=== PATIENT | male | born 1985 | race American Indian/Alaskan Native ===

== ENCOUNTER 2017-04-01 19:13 | Emergency (ER) | payer SELFPAY ==
[2017-04-01 19:28] VITALS: BP 157/95
[2017-04-01] MEDS ORDERED: Sodium Chloride 0.9% 1,000 ML IV ONE ×2 (19:31→20:18)
[2017-04-01] MEDS ORDERED: Ondansetron 4 MG/2 ML SDV IV ONE (19:32)
--- NOTE | 2017-04-01 20:41 | EDM.PDOC ---
ED HPI GENERAL MEDICAL PROBLEM - General Chief Complaint: Gastrointestinal Problem Stated Complaint: DIZZY, Time Seen by Provider: 04/01/17 20:15 Source of Information: Reports: Patient History Limitations: Reports: No Limitations - History of Present Illness INITIAL COMMENTS - FREE TEXT/NARRATIVE: C/o feeling nauseated an dizzy after being outside today. Notes nausea around noon , no vomiting. Notes did not drink very much liquid today. Denies medical hx. Onset: Today Duration: Hour(s): Associated Symptoms: Reports: Nausea/Vomiting, Other (dizzy) Headache Pain Score (Numeric/FACES): 6 - Related Data Allergies Allergy/AdvReac Type Severity Reaction Status Date / Time No Known Allergies Allergy Verified 04/01/17 19:28 Home Meds: Home Meds . [No Known Home Meds] 12/16/14 [History] Past Medical History - Past Health History Medical/Surgical History: Denies Medical/Surgical History Musculoskeletal History: Reports: Other (See Below) Other Musculoskeletal History: Fx. arm x2 Endocrine/Metabolic History: Reports: Obesity/BMI 30+ - Infectious Disease History Infectious Disease History: Reports: Chicken Pox Social & Family History - Family History Family Medical History: Noncontributory - Tobacco Use Smoking Status *Q: Current Every Day Smoker Years of Tobacco use: 15 Packs/Tins Daily: 0.2 Second Hand Smoke Exposure: No - Caffeine Use Caffeine Use: Reports: Soda - Alcohol Use Days Per Week of Alcohol Use: 3 Number of Drinks Per Day: 12 Total Drinks Per Week: 36 - Recreational Drug Use Recreational Drug Use: No - Sexual History Sexual History: Reports: Sexually Active - Living Situation & Occupation Living situation: Reports: with Significant Other Occupation: Employed ED ROS GENERAL - Review of Systems Review Of Systems: See Below Constitutional: Reports: No Symptoms HEENT: Reports: No Symptoms Respiratory: Reports: No Symptoms Cardiovascular: Reports: No Symptoms GI/Abdominal: Reports: Nausea : Reports: No Symptoms Musculoskeletal: Reports: No Symptoms Skin: Reports: No Symptoms Neurological: Reports: Dizziness ED EXAM, GI/ABD - Physical Exam Exam: See Below Exam Limited By: No Limitations General Appearance: Alert, No Apparent Distress Eyes: Bilateral: EOMI Ears: Normal External Exam Nose: Normal Inspection Throat/Mouth: Normal Inspection, Normal Lips, Normal Teeth Head: Atraumatic Neck: Normal Inspection, Supple Respiratory/Chest: No Respiratory Distress, Lungs Clear Cardiovascular: Normal Peripheral Pulses, Regular Rate, Rhythm GI/Abdominal Exam: Normal Bowel Sounds, Soft, Non-Tender Extremities: Normal Inspection, Normal Range of Motion Neurological: Alert, Oriented, Normal Cognition Psychiatric: Normal Affect, Normal Mood Skin Exam: Warm, Dry, Intact, Normal Color, Tattoo(s) Course - Vital Signs Last Recorded V/S: Last Vital Signs Temp 97.4 F 04/01/17 19:16 Pulse 109 H 04/01/17 19:16 Resp 16 04/01/17 19:16 BP 157/95 H 04/01/17 19:16 Pulse Ox 100 04/01/17 20:38 Orthostatic Blood Pressure [ 148/96 Supine] Orthostatic Blood Pressure [ 143/100 Standing] Orthostatic Blood Pressure [ 153/97 Sitting] - Orders/Labs/Meds Orders: Active Orders 24 hr Category Date Time Status Orthostatic Vital Signs [RC] ASDIRECTED Care 04/01/17 20:38 Active Labs: Laboratory Tests 04/01/17 04/01/17 04/01/17 Range/Units 19:34 19:40 19:40 WBC 13.2 H (5.0-10.0) 10^3/uL RBC 5.43 (4.6-6.2) 10^6/uL Hgb 17.5 (14.0-18.0) g/dL Hct 50.3 (40.0-54.0) % MCV 92.6 (80-100) fL MCH 32.2 (27.0-34.0) pg MCHC 34.8 (33.0-35.0) g/dL Plt Count 317 (150-450) 10^3/uL Neut % (Auto) 62.4 (42.2-75.2) % Lymph % (Auto) 27.5 (20.5-50.1) % [place] % (Auto) 8.9 H (2-8) % Eos % (Auto) 1.0 (1.0-3.0) % Baso % (Auto) 0.2 (0.0-1.0) % Sodium 139 (135-145) mmol/L Potassium 4.0 (3.6-5.0) mmol/L Chloride 104 (101-111) mmol/L Carbon Dioxide 21.0 (21.0-31.0) mmol/L Anion Gap 18.0 BUN 25 H (7-18) mg/dL Creatinine 1.6 H (0.6-1.3) mg/dL Est Cr Clr Drug Dosing 76.29 mL/min Estimated GFR (MDRD) 51 BUN/Creatinine Ratio 15.62 Glucose 96 (74-105) mg/dL Calcium 9.9 (8.4-10.2) mg/dl Total Bilirubin 1.2 H (0.2-1.0) mg/dL AST 36 (10-42) IU/L ALT 46 (10-60) IU/L Alkaline Phosphatase 106 (42-121) IU/L Total Protein 9.5 H (6.7-8.2) g/dl Albumin 5.3 (3.2-5.5) g/dl Globulin 4.2 Albumin/Globulin Ratio 1.26 Urine Color Dark yellow (YELLOW) Urine Appearance Slightly cloudy (CLEAR) Urine pH 5.5 (5.0-9.0) Ur Specific [place] >= 1.030 (1.005-1.030) Urine Protein >=300 H (NEGATIVE) Urine Glucose (UA) Negative (NEGATIVE) Urine Ketones 15 H (NEGATIVE) Urine Occult Blood Trace-lysed H (NEGATIVE) Urine Nitrite Negative (NEGATIVE) Urine Bilirubin Moderate H (NEGATIVE) Urine Urobilinogen 1.0 (0.2-1.0) mg/dL Ur Leukocyte Esterase Negative (NEGATIVE) Urine RBC 5-10 H /HPF Urine WBC 0-5 (0-5/HPF) /HPF Ur Epithelial Cells Rare /HPF Amorphous Sediment Rare (0/HPF) /HPF Urine Bacteria Moderate H (0-FEW/HPF) /HPF Hyaline Casts Rare H /LPF Urine Mucus Many H /LPF Meds: Medications Discontinued Medications Generic Name Dose Route Start Last Admin Trade Name Freq PRN Reason Stop Dose Admin Sodium Chloride 1,000 mls @ 999 mls/hr 04/01/17 19:31 04/01/17 19:44 Normal Saline IV 04/01/17 20:31 999 mls/hr .BOLUS ONE Administration Sodium Chloride 1,000 mls @ 999 mls/hr 04/01/17 20:18 04/01/17 20:21 Normal Saline IV 04/01/17 21:18 999 mls/hr .BOLUS ONE Administration Ondansetron HCl 4 mg 04/01/17 19:32 04/01/17 19:45 Zofran IV 04/01/17 19:33 4 mg ONETIME ONE Administration Departure - Departure Time of Disposition: 20:45 Disposition: Home, Self-Care 01 Condition: Good Clinical Impression: Dehydration, Nausea - Discharge Information Instructions: Dehydration, Adult, [id number] Referrals: PCP,None [Primary Care Provider] - Forms: ED Department Discharge Additional Instructions: increase fluid intake rest follow up with or establish primary care and recheck labs, liver and kidney and recheck blood pressure - My Orders Last 24 Hours: My Active Orders 04/01/17 20:38 Orthostatic Vital Signs [RC] ASDIRECTED - Assessment/Plan Last 24 Hours: My Active Orders 04/01/17 20:38 Orthostatic Vital Signs [RC] ASDIRECTED
== END 2017-04-01 21:02 | disposition home or self-care (01) ==
LOC: DL.ED 19:13
DX: E86.0 Dehydration (principal); R11.0 Nausea; E66.9 Obesity, unspecified; F17.210 Nicotine dependence, cigarettes, uncomplicated
CPT/HCPCS: 36415; 80053; 81001; 85025; 96361; 96374; 99283; J2405; J7030

== ENCOUNTER 2017-07-02 12:48 | Emergency (ER) | payer SELFPAY ==
[2017-07-02] MEDS ORDERED: Sodium Chloride 0.9% 10 ML Syringe FLUSH PRN (13:00)
[2017-07-02] MEDS ORDERED: Ondansetron 4 MG/2 ML SDV IV ONE (13:05)
[2017-07-02] MEDS ORDERED: Pantoprazole 40 MG Vial IVPUSH ONE (13:05)
--- NOTE | 2017-07-02 13:09 | EDM.PDOC ---
ED HPI GENERAL MEDICAL PROBLEM - General Chief Complaint: Gastrointestinal Problem Stated Complaint: PUKING BLOOD, FAINT Time Seen by Provider: 07/02/17 13:00 Source of Information: Reports: Patient, RN, RN Notes Reviewed History Limitations: Reports: No Limitations - History of Present Illness INITIAL COMMENTS - FREE TEXT/NARRATIVE: Pt presents to the ER with c/o nausea this morning with vomiting of blood beginning at 1130. He states at first the emesis had streaks of blood in it, and then more blood. He denies any recent illnesses. He denies use of alcohol for approximately 3-4 months. Onset: Today, Sudden Middle Epigastric Pain Score (Numeric/FACES): 4 - Related Data Allergies Allergy/AdvReac Type Severity Reaction Status Date / Time No Known Allergies Allergy Verified 07/02/17 12:55 Home Meds: Home Meds . [No Known Home Meds] 12/16/14 [History] Past Medical History - Past Health History Medical/Surgical History: Denies Medical/Surgical History Musculoskeletal History: Reports: Other (See Below) Other Musculoskeletal History: Fx. arm x2 Endocrine/Metabolic History: Reports: Obesity/BMI 30+ - Infectious Disease History Infectious Disease History: Reports: Chicken Pox Social & Family History - Family History Family Medical History: Noncontributory - Tobacco Use Smoking Status *Q: Current Every Day Smoker Years of Tobacco use: 15 Packs/Tins Daily: 0.5 Second Hand Smoke Exposure: No - Caffeine Use Caffeine Use: Reports: Coffee, Soda, Tea - Alcohol Use Days Per Week of Alcohol Use: 3 Number of Drinks Per Day: 12 Total Drinks Per Week: 36 - Recreational Drug Use Recreational Drug Use: No - Sexual History Sexual History: Reports: Sexually Active - Living Situation & Occupation Living situation: Reports: with Significant Other Occupation: Employed ED ROS GENERAL - Review of Systems Review Of Systems: ROS reveals no pertinent complaints other than HPI. ED EXAM, GI/ABD - Physical Exam Exam: See Below Exam Limited By: No Limitations General Appearance: Alert, WD/WN, Mild Distress Ears: Normal External Exam, Hearing Grossly Normal Nose: Normal Inspection, Normal Mucosa, No Blood Throat/Mouth: Normal Inspection, Normal Lips, Normal Teeth, Normal Gums, Normal Oropharynx, Normal Voice, No Airway Compromise Head: Atraumatic, Normocephalic Neck: Normal Inspection, Supple, Non-Tender, Full Range of Motion Respiratory/Chest: No Respiratory Distress, Lungs Clear, Normal Breath Sounds, No Accessory Muscle Use, Chest Non-Tender Cardiovascular: Normal Peripheral Pulses, Regular Rate, Rhythm, No Edema, No Gallop, No JVD, No Murmur, No Rub GI/Abdominal Exam: Normal Bowel Sounds, Soft, No Organomegaly, No Distention, No Abnormal Bruit, No Mass, Tender (Male) Exam: Deferred Rectal (Males) Exam: Deferred Back Exam: Normal Inspection, Full Range of Motion Extremities: Normal Inspection, Normal Range of Motion, Non-Tender, No Pedal Edema, Normal Capillary Refill Neurological: Alert, Oriented, Normal Cognition, Normal Gait, No Motor/Sensory Deficits Psychiatric: Anxious Skin Exam: Warm, Dry, Intact, Normal Color, No Rash Lymphatic: No Adenopathy Course - Vital Signs Last Recorded V/S: Last Vital Signs Temp 97.6 F 07/02/17 12:57 Pulse 84 07/02/17 14:15 Resp 16 07/02/17 14:15 BP 156/94 H 07/02/17 14:15 Pulse Ox 100 07/02/17 14:15 - Orders/Labs/Meds Orders: Active Orders 24 hr Category Date Time Status Peripheral IV Care [RC] . DIRECTED Care 07/02/17 13:01 Active Sodium Chloride 0.9% [Normal Saline] 1,000 ml Med 07/02/17 14:41 Active IV .BOLUS Sodium Chloride 0.9% [Saline Flush] Med 07/02/17 13:00 Active 10 ml FLUSH ASDIRECTED PRN Peripheral IV Insertion Adult [OM.PC] Stat Oth 07/02/17 13:00 Ordered Medication Orders Sodium Chloride (Normal Saline) 1,000 mls @ 999 mls/hr IV .BOLUS ONE Stop: 07/02/17 15:41 Last Admin: 07/02/17 14:46 Dose: 999 mls/hr Sodium Chloride (Saline Flush) 10 ml FLUSH ASDIRECTED PRN PRN Reason: Keep Vein Open Last Admin: 07/02/17 13:05 Dose: 10 ml Labs: Laboratory Tests 07/02/17 07/02/17 07/02/17 Range/Units 13:00 13:00 13:06 WBC 12.0 H (5.0-10.0) 10^3/uL RBC 5.39 (4.6-6.2) 10^6/uL Hgb 17.1 (14.0-18.0) g/dL Hct 50.1 (40.0-54.0) % MCV 92.9 (80-100) fL MCH 31.7 (27.0-34.0) pg MCHC 34.1 (33.0-35.0) g/dL Plt Count 321 (150-450) 10^3/uL Neut % (Auto) 68.4 (42.2-75.2) % Lymph % (Auto) 24.1 (20.5-50.1) % [place] % (Auto) 6.7 (2-8) % Eos % (Auto) 0.6 L (1.0-3.0) % Baso % (Auto) 0.2 (0.0-1.0) % Sodium 141 (135-145) mmol/L Potassium 4.2 (3.6-5.0) mmol/L Chloride 103 (101-111) mmol/L Carbon Dioxide 24.0 (21.0-31.0) mmol/L Anion Gap 18.2 BUN 22 H (7-18) mg/dL Creatinine 1.3 (0.6-1.3) mg/dL Est Cr Clr Drug Dosing TNP Estimated GFR (MDRD) > 60 BUN/Creatinine Ratio 16.92 Glucose 91 (74-105) mg/dL Calcium 9.9 (8.4-10.2) mg/dl Total Bilirubin 0.9 (0.2-1.0) mg/dL AST 28 (10-42) IU/L ALT 31 (10-60) IU/L Alkaline Phosphatase 104 (42-121) IU/L Total Protein 8.6 H (6.7-8.2) g/dl Albumin 5.0 (3.2-5.5) g/dl Globulin 3.6 Albumin/Globulin Ratio 1.39 Amylase (28-100) U/L Lipase (22-51) U/L Urine Color Yellow (YELLOW) Urine Appearance Clear (CLEAR) Urine pH 5.5 (5.0-9.0) Ur Specific [place] >= 1.030 (1.005-1.030) Urine Protein 100 H (NEGATIVE) Urine Glucose (UA) Negative (NEGATIVE) Urine Ketones Trace H (NEGATIVE) Urine Occult Blood Negative (NEGATIVE) Urine Nitrite Negative (NEGATIVE) Urine Bilirubin Small H (NEGATIVE) Urine Urobilinogen 0.2 (0.2-1.0) mg/dL Ur Leukocyte Esterase Negative (NEGATIVE) Urine RBC 0-5 /HPF Urine WBC 0-5 (0-5/HPF) /HPF Ur Epithelial Cells Few /HPF Urine Bacteria Moderate H (0-FEW/HPF) /HPF Urine Mucus Moderate H /LPF Urine Opiates Screen (NEGATIVE) Ur Oxycodone Screen (NEGATIVE) Urine Methadone Screen (NEGATIVE) Ur Barbiturates Screen (NEGATIVE) U Tricyclic Antidepress (NEGATIVE) Ur Phencyclidine Scrn (NEGATIVE) Ur Amphetamine Screen (NEGATIVE) U Methamphetamines Scrn (NEGATIVE) Urine MDMA Screen (NEGATIVE) U Benzodiazepines Scrn (NEGATIVE) Urine Cocaine Screen (NEGATIVE) U Marijuana (THC) Screen (NEGATIVE) Ethyl Alcohol 5 mg/dL 07/02/17 07/02/17 Range/Units 13:06 13:17 WBC (5.0-10.0) 10^3/uL RBC (4.6-6.2) 10^6/uL Hgb (14.0-18.0) g/dL Hct (40.0-54.0) % MCV (80-100) fL MCH (27.0-34.0) pg MCHC (33.0-35.0) g/dL Plt Count (150-450) 10^3/uL Neut % (Auto) (42.2-75.2) % Lymph % (Auto) (20.5-50.1) % [place] % (Auto) (2-8) % Eos % (Auto) (1.0-3.0) % Baso % (Auto) (0.0-1.0) % Sodium (135-145) mmol/L Potassium (3.6-5.0) mmol/L Chloride (101-111) mmol/L Carbon Dioxide (21.0-31.0) mmol/L Anion Gap BUN (7-18) mg/dL Creatinine (0.6-1.3) mg/dL Est Cr Clr Drug Dosing Estimated GFR (MDRD) BUN/Creatinine Ratio Glucose (74-105) mg/dL Calcium (8.4-10.2) mg/dl Total Bilirubin (0.2-1.0) mg/dL AST (10-42) IU/L ALT (10-60) IU/L Alkaline Phosphatase (42-121) IU/L Total Protein (6.7-8.2) g/dl Albumin (3.2-5.5) g/dl Globulin Albumin/Globulin Ratio Amylase 55 (28-100) U/L Lipase 28 (22-51) U/L Urine Color (YELLOW) Urine Appearance (CLEAR) Urine pH (5.0-9.0) Ur Specific [place] (1.005-1.030) Urine Protein (NEGATIVE) Urine Glucose (UA) (NEGATIVE) Urine Ketones (NEGATIVE) Urine Occult Blood (NEGATIVE) Urine Nitrite (NEGATIVE) Urine Bilirubin (NEGATIVE) Urine Urobilinogen (0.2-1.0) mg/dL Ur Leukocyte Esterase (NEGATIVE) Urine RBC /HPF Urine WBC (0-5/HPF) /HPF Ur Epithelial Cells /HPF Urine Bacteria (0-FEW/HPF) /HPF Urine Mucus /LPF Urine Opiates Screen Negative (NEGATIVE) Ur Oxycodone Screen Negative (NEGATIVE) Urine Methadone Screen Negative (NEGATIVE) Ur Barbiturates Screen Negative (NEGATIVE) U Tricyclic Antidepress Negative (NEGATIVE) Ur Phencyclidine Scrn Negative (NEGATIVE) Ur Amphetamine Screen Negative (NEGATIVE) U Methamphetamines Scrn Negative (NEGATIVE) Urine MDMA Screen Negative (NEGATIVE) U Benzodiazepines Scrn Negative (NEGATIVE) Urine Cocaine Screen Negative (NEGATIVE) U Marijuana (THC) Screen Positive H (NEGATIVE) Ethyl Alcohol mg/dL Gastric Occult Blood: NEGATIVE Meds: Medications Generic Name Dose Route Start Last Admin Trade Name Freq PRN Reason Stop Dose Admin Sodium Chloride 1,000 mls @ 999 mls/hr 07/02/17 14:41 07/02/17 14:46 Normal Saline IV 07/02/17 15:41 999 mls/hr .BOLUS ONE Administration Sodium Chloride 10 ml 07/02/17 13:00 07/02/17 13:05 Saline Flush FLUSH 10 ml ASDIRECTED PRN Administration Keep Vein Open Discontinued Medications Generic Name Dose Route Start Last Admin Trade Name Freq PRN Reason Stop Dose Admin Metoclopramide HCl 10 mg 07/02/17 14:40 07/02/17 14:46 Reglan IVPUSH 07/02/17 14:41 10 mg ONETIME ONE Administration Ondansetron HCl 4 mg 07/02/17 13:05 07/02/17 13:13 Zofran IV 07/02/17 13:06 4 mg ONETIME ONE Administration Pantoprazole Sodium 40 mg 07/02/17 13:05 07/02/17 13:13 Protonix Iv IVPUSH 07/02/17 13:06 40 mg ONETIME ONE Administration Promethazine HCl 25 mg 07/02/17 14:00 07/02/17 14:13 Phenergan IM 07/02/17 14:01 25 mg ONETIME ONE Administration - Radiology Interpretation Free Text/Narrative:: Abdomen Pelvis w/o contrast: No acute findings See rad report Departure - Departure Time of Disposition: 15:15 Disposition: Home, Self-Care 01 Condition: Fair Clinical Impression: Gastroenteritis, Nausea - Discharge Information Instructions: Viral Gastroenteritis, Adult, [id number], Abdominal Pain, Adult , [id number] Forms: ED Department Discharge Additional Instructions: Follow up with your primary care facility RX: Reglan - My Orders Last 24 Hours: My Active Orders 07/02/17 13:00 Sodium Chloride 0.9% [Saline Flush] 10 ml FLUSH ASDIRECTED PRN Peripheral IV Insertion Adult [OM.PC] Stat 07/02/17 13:01 Peripheral IV Care [RC] . DIRECTED 07/02/17 14:41 Sodium Chloride 0.9% [Normal Saline] 1,000 ml IV .BOLUS - Assessment/Plan Last 24 Hours: My Active Orders 07/02/17 13:00 Sodium Chloride 0.9% [Saline Flush] 10 ml FLUSH ASDIRECTED PRN Peripheral IV Insertion Adult [OM.PC] Stat 07/02/17 13:01 Peripheral IV Care [RC] . DIRECTED 07/02/17 14:41 Sodium Chloride 0.9% [Normal Saline] 1,000 ml IV .BOLUS
[2017-07-02 13:43] LABS: CHLORIDE,CL 103 mmol/L (101-111); SODIUM,NA 141 mmol/L (135-145)
[2017-07-02] MEDS ORDERED: Promethazine 25 MG/ML SDV IM ONE (14:00)
[2017-07-02 14:16] VITALS: BP 156/94
--- NOTE | 2017-07-02 14:34 | CT ---
Clinical history: 32-year-old 275 pound obese male smoker with abdominal pain. WBC 12,000. Scan technique: Volume acquisition of data emergency unenhanced CT scan of the abdomen and pelvis obt ained with patient lying supine on the Siemens multi slice scanner [place], [place]. All data archived in the PACS system for storage, reformatting and study. Interpretation: 1. Mild levorotatory lumbar scoliosis and chronic lower lumbar L5-S1 disc disease. Hypertrophic arthr itic changes of the spine. 2. Normal appendix deep RLQ abdomen/pelvis. 3. Gallbladder, unenhanced liver, stomach (small hiatus hernia), spleen, pancreas, adrenal glands and kidneys unremarkable. No sign of renal cortical mass lesion, nephrolithiasis or obstructive uropathy . 4. *Some diffuse apparent bowel wall thickening ascending right colon not appreciated on previous exa m of October 2015 could represent colitis. Clinical? No colonic mass, signs of mechanical bowel obstruc tion, or pericolonic inflammatory "dirty" fat. 5. No pelvic or abdominal mass lesion and no signs of mesenteric or retroperitoneal lymphadenopathy. 6. Normal caliber unenhanced aortoiliac vessels. No free intraperitoneal air. 7. Lung bases clear. CONCLUSION: No acute intraperitoneal abnormality (subtle observation right colon. See above.) No sign of appendicitis, diverticulitis, cholecystitis, or pyelonephritis.
[2017-07-02] MEDS ORDERED: Metoclopramide 10 MG/2 ML SDV IVPUSH ONE (14:40)
[2017-07-02] MEDS ORDERED: Sodium Chloride 0.9% 1,000 ML IV ONE (14:41)
== END 2017-07-02 15:23 | disposition home or self-care (01) ==
LOC: DL.ED 12:48
DX: K52.9 Noninfective gastroenteritis and colitis, unspecified (principal); F17.210 Nicotine dependence, cigarettes, uncomplicated
CPT/HCPCS: 36415; 74176; 80053; 80305; 81001; 82150; 82271; 83690; 85025; 96361; 96372; 96374; 96375; 99284; C9113; G0480; J2405; J2550; J2765; J7030; J7050

== ENCOUNTER 2017-07-12 03:33 | Emergency (ER) | payer SELFPAY ==
[2017-07-12 03:42] VITALS: BP 157/99
[2017-07-12] MEDS ORDERED: Famotidine 20 MG/2 ML SDV IVPUSH ONE (03:45)
[2017-07-12] MEDS ORDERED: Sodium Chloride 0.9% 1,000 ML IV ONE (03:45)
--- NOTE | 2017-07-12 04:20 | EDM.PDOC ---
ED HPI GENERAL MEDICAL PROBLEM - General Chief Complaint: Abdominal Pain Stated Complaint: BAD STOMACH ACHE Time Seen by Provider: 07/12/17 03:50 Source of Information: Reports: Patient History Limitations: Reports: No Limitations - History of Present Illness INITIAL COMMENTS - FREE TEXT/NARRATIVE: c/o vomiting and diarrhea since 7 pm after eating corn dogs for supper. Admits not feeling well during day. Chills during day. Similar sx one week ago. Onset: Today Abdomen Pain Score (Numeric/FACES): 7 - Related Data Allergies Allergy/AdvReac Type Severity Reaction Status Date / Time No Known Allergies Allergy Verified 07/12/17 03:45 Home Meds: Home Meds . [No Known Home Meds] 12/16/14 [History] Past Medical History - Past Health History Medical/Surgical History: Denies Medical/Surgical History Musculoskeletal History: Reports: Other (See Below) Other Musculoskeletal History: Fx. arm x2 Endocrine/Metabolic History: Reports: Obesity/BMI 30+ - Infectious Disease History Infectious Disease History: Reports: Chicken Pox Social & Family History - Family History Family Medical History: Noncontributory - Tobacco Use Smoking Status *Q: Current Every Day Smoker Years of Tobacco use: 15 Packs/Tins Daily: 1 Second Hand Smoke Exposure: No - Caffeine Use Caffeine Use: Reports: Soda - Alcohol Use Days Per Week of Alcohol Use: 3 Number of Drinks Per Day: 12 Total Drinks Per Week: 36 - Recreational Drug Use Recreational Drug Use: No - Sexual History Sexual History: Reports: Sexually Active - Living Situation & Occupation Living situation: Reports: with Significant Other Occupation: Employed ED ROS GENERAL - Review of Systems Review Of Systems: See Below Constitutional: Reports: Chills HEENT: Reports: No Symptoms Respiratory: Reports: No Symptoms Cardiovascular: Reports: No Symptoms GI/Abdominal: Reports: Decreased Appetite, Nausea, Vomiting : Reports: No Symptoms Musculoskeletal: Reports: No Symptoms Skin: Reports: No Symptoms Neurological: Reports: No Symptoms ED EXAM, GI/ABD - Physical Exam Exam: See Below Exam Limited By: No Limitations General Appearance: Alert, Mild Distress Eyes: Bilateral: EOMI Ears: Normal External Exam Nose: Normal Inspection Throat/Mouth: Normal Inspection Head: Atraumatic, Normocephalic Neck: Normal Inspection Respiratory/Chest: No Respiratory Distress, Lungs Clear Cardiovascular: Normal Peripheral Pulses, Regular Rate, Rhythm GI/Abdominal Exam: Soft, No Distention, Tender, Abnormal Bowel Sounds ( hypoactive), Other (frequent dry heaves). No: Guarding Extremities: Normal Inspection, Normal Range of Motion Neurological: Alert, Oriented, Normal Cognition Psychiatric: Normal Affect Skin Exam: Warm, Dry, Intact, Normal Color Course - Vital Signs Last Recorded V/S: Last Vital Signs Temp 97.6 F 07/12/17 04:35 Pulse 52 L 07/12/17 03:41 Resp 18 07/12/17 03:41 BP 157/99 H 07/12/17 03:41 Pulse Ox 100 07/12/17 03:41 - Orders/Labs/Meds Labs: Laboratory Tests 07/12/17 07/12/17 07/12/17 Range/Units 04:05 04:05 05:13 WBC 17.3 H (5.0-10.0) 10^3/uL RBC 4.98 (4.6-6.2) 10^6/uL Hgb 15.7 (14.0-18.0) g/dL Hct 46.6 (40.0-54.0) % MCV 93.6 (80-100) fL MCH 31.5 (27.0-34.0) pg MCHC 33.7 (33.0-35.0) g/dL Plt Count 298 (150-450) 10^3/uL Neut % (Auto) 86.4 H (42.2-75.2) % Lymph % (Auto) 9.0 L (20.5-50.1) % [place] % (Auto) 4.3 (2-8) % Eos % (Auto) 0.2 L (1.0-3.0) % Baso % (Auto) 0.1 (0.0-1.0) % Sodium 138 (135-145) mmol/L Potassium 4.1 (3.6-5.0) mmol/L Chloride 107 (101-111) mmol/L Carbon Dioxide 25.0 (21.0-31.0) mmol/L Anion Gap 10.1 BUN 16 (7-18) mg/dL Creatinine 1.0 (0.6-1.3) mg/dL Est Cr Clr Drug Dosing 120.96 mL/min Estimated GFR (MDRD) > 60 BUN/Creatinine Ratio 16.00 Glucose 117 H (74-105) mg/dL Calcium 9.1 (8.4-10.2) mg/dl Total Bilirubin 0.6 (0.2-1.0) mg/dL AST 28 (10-42) IU/L ALT 28 (10-60) IU/L Alkaline Phosphatase 91 (42-121) IU/L Total Protein 7.7 (6.7-8.2) g/dl Albumin 4.3 (3.2-5.5) g/dl Globulin 3.4 Albumin/Globulin Ratio 1.26 Amylase 55 (28-100) U/L Lipase 24 (22-51) U/L Urine Color (YELLOW) Urine Appearance (CLEAR) Urine pH (5.0-9.0) Ur Specific [place] (1.005-1.030) Urine Protein (NEGATIVE) Urine Glucose (UA) (NEGATIVE) Urine Ketones (NEGATIVE) Urine Occult Blood (NEGATIVE) Urine Nitrite (NEGATIVE) Urine Bilirubin (NEGATIVE) Urine Urobilinogen (0.2-1.0) mg/dL Ur Leukocyte Esterase (NEGATIVE) Urine RBC /HPF Urine WBC (0-5/HPF) /HPF Ur Epithelial Cells /HPF Urine Bacteria (0-FEW/HPF) /HPF Urine Opiates Screen Negative (NEGATIVE) Ur Oxycodone Screen Negative (NEGATIVE) Urine Methadone Screen Negative (NEGATIVE) Ur Barbiturates Screen Negative (NEGATIVE) U Tricyclic Antidepress Negative (NEGATIVE) Ur Phencyclidine Scrn Negative (NEGATIVE) Ur Amphetamine Screen Negative (NEGATIVE) U Methamphetamines Scrn Negative (NEGATIVE) Urine MDMA Screen Negative (NEGATIVE) U Benzodiazepines Scrn Negative (NEGATIVE) Urine Cocaine Screen Negative (NEGATIVE) U Marijuana (THC) Screen Positive H (NEGATIVE) 07/12/17 Range/Units 05:13 WBC (5.0-10.0) 10^3/uL RBC (4.6-6.2) 10^6/uL Hgb (14.0-18.0) g/dL Hct (40.0-54.0) % MCV (80-100) fL MCH (27.0-34.0) pg MCHC (33.0-35.0) g/dL Plt Count (150-450) 10^3/uL Neut % (Auto) (42.2-75.2) % Lymph % (Auto) (20.5-50.1) % [place] % (Auto) (2-8) % Eos % (Auto) (1.0-3.0) % Baso % (Auto) (0.0-1.0) % Sodium (135-145) mmol/L Potassium (3.6-5.0) mmol/L Chloride (101-111) mmol/L Carbon Dioxide (21.0-31.0) mmol/L Anion Gap BUN (7-18) mg/dL Creatinine (0.6-1.3) mg/dL Est Cr Clr Drug Dosing mL/min Estimated GFR (MDRD) BUN/Creatinine Ratio Glucose (74-105) mg/dL Calcium (8.4-10.2) mg/dl Total Bilirubin (0.2-1.0) mg/dL AST (10-42) IU/L ALT (10-60) IU/L Alkaline Phosphatase (42-121) IU/L Total Protein (6.7-8.2) g/dl Albumin (3.2-5.5) g/dl Globulin Albumin/Globulin Ratio Amylase (28-100) U/L Lipase (22-51) U/L Urine Color Yellow (YELLOW) Urine Appearance Clear (CLEAR) Urine pH 5.5 (5.0-9.0) Ur Specific [place] >= 1.030 (1.005-1.030) Urine Protein 30 H (NEGATIVE) Urine Glucose (UA) Negative (NEGATIVE) Urine Ketones Negative (NEGATIVE) Urine Occult Blood Negative (NEGATIVE) Urine Nitrite Negative (NEGATIVE) Urine Bilirubin Negative (NEGATIVE) Urine Urobilinogen 0.2 (0.2-1.0) mg/dL Ur Leukocyte Esterase Negative (NEGATIVE) Urine RBC 0-5 /HPF Urine WBC 0-5 (0-5/HPF) /HPF Ur Epithelial Cells Rare /HPF Urine Bacteria Few (0-FEW/HPF) /HPF Urine Opiates Screen (NEGATIVE) Ur Oxycodone Screen (NEGATIVE) Urine Methadone Screen (NEGATIVE) Ur Barbiturates Screen (NEGATIVE) U Tricyclic Antidepress (NEGATIVE) Ur Phencyclidine Scrn (NEGATIVE) Ur Amphetamine Screen (NEGATIVE) U Methamphetamines Scrn (NEGATIVE) Urine MDMA Screen (NEGATIVE) U Benzodiazepines Scrn (NEGATIVE) Urine Cocaine Screen (NEGATIVE) U Marijuana (THC) Screen (NEGATIVE) Meds: Medications Discontinued Medications Generic Name Dose Route Start Last Admin Trade Name Freq PRN Reason Stop Dose Admin Famotidine 20 mg 12/08/17 03:45 07/12/17 04:06 Pepcid IVPUSH 07/12/17 03:46 20 mg ONETIME ONE Administration Sodium Chloride 1,000 mls @ 999 mls/hr 07/12/17 03:45 07/12/17 04:05 Normal Saline IV 07/12/17 04:45 999 mls/hr .BOLUS ONE Administration Metoclopramide HCl 10 mg 07/12/17 05:00 07/12/17 05:05 Reglan IVPUSH 07/12/17 05:01 10 mg ONETIME ONE Administration Ondansetron HCl 4 mg 07/12/17 04:41 07/12/17 04:48 Zofran IV 07/12/17 04:42 4 mg ONETIME ONE Administration - Re-Assessments/Exams Free Text/Narrative Re-Assessment/Exam: CT abdomen done less than one week ago and unremarkable, Patient relating similar symptoms. Retching partially resolved following Zofran. Resting, Occasional dry heave. mild generalized non specific abdominal pain with deep palpation. . Vomiting Resolved with Reglan. Sleeping soundly. Departure - Departure Time of Disposition: 06:26 Disposition: Home, Self-Care 01 Condition: Good Clinical Impression: Nausea Vomiting Qualifiers: Vomiting type: unspecified Vomiting Intractability: unspecified Nausea presence : with nausea Qualified Code(s): R11.2 - Nausea with vomiting, unspecified - Discharge Information Instructions: Nausea and Vomiting, Adult, [id number] Referrals: PCP,None [Primary Care Provider] - Forms: ED Department Discharge Additional Instructions: zofran 4mg ODT every 6 hours prn vomiting gradual advance diet no fat or spicy foods follow up with PCP on Saturday
[2017-07-12 04:31] LABS: CHLORIDE,CL 107 mmol/L (101-111); SODIUM,NA 138 mmol/L (135-145)
[2017-07-12] MEDS ORDERED: Ondansetron 4 MG/2 ML SDV IV ONE (04:41)
[2017-07-12] MEDS ORDERED: Metoclopramide 10 MG/2 ML SDV IVPUSH ONE (05:00)
== END 2017-07-12 06:40 | disposition home or self-care (01) ==
LOC: DL.ED 03:33
DX: R11.2 Nausea with vomiting, unspecified (principal); F17.210 Nicotine dependence, cigarettes, uncomplicated
CPT/HCPCS: 36415; 74020; 80053; 80305; 81001; 82150; 83690; 85025; 96361; 96374; 96375; 99284; J2405; J2765; J7030; S0028

== ENCOUNTER 2017-12-05 23:03 | Emergency (ER) | payer SELFPAY ==
[2017-12-05] MEDS ORDERED: cefTRIAXone 1 GM, Lidocaine 1% 2.1 ML IM ONE ×2 (23:31)
--- NOTE | 2017-12-05 23:39 | EDM.PDOC ---
ED HPI GENERAL MEDICAL PROBLEM - General Chief Complaint: Eye Problems Stated Complaint: EYE, FEVER [id number] Time Seen by Provider: 12/05/17 23:05 Source of Information: Reports: Patient History Limitations: Reports: No Limitations - History of Present Illness INITIAL COMMENTS - FREE TEXT/NARRATIVE: ED with c/o sore throat, chills and left eye red. Was seen at [facility] on 12/03 diagnosed with strep throat and ear infection. Given eye drops but eye not getting better. Has been taking tylenol for fever. Was some better until going to work today then seemed to get worse. Left Eye Pain Score (Numeric/FACES): 10 - Related Data Allergies Allergy/AdvReac Type Severity Reaction Status Date / Time No Known Allergies Allergy Verified 07/12/17 03:45 Home Meds: Home Meds . [No Known Home Meds] 12/16/14 [History] Past Medical History - Past Health History Medical/Surgical History: Denies Medical/Surgical History Musculoskeletal History: Reports: Other (See Below) Other Musculoskeletal History: Fx. arm x2 Endocrine/Metabolic History: Reports: Obesity/BMI 30+ - Infectious Disease History Infectious Disease History: Reports: Chicken Pox Social & Family History - Family History Family Medical History: Noncontributory - Tobacco Use Smoking Status *Q: Current Every Day Smoker Years of Tobacco use: 17 Packs/Tins Daily: 0.5 Second Hand Smoke Exposure: No - Caffeine Use Caffeine Use: Reports: Soda - Alcohol Use Days Per Week of Alcohol Use: 3 Number of Drinks Per Day: 12 Total Drinks Per Week: 36 - Recreational Drug Use Recreational Drug Use: No - Sexual History Sexual History: Reports: Sexually Active - Living Situation & Occupation Living situation: Reports: with Significant Other Occupation: Employed ED ROS GENERAL - Review of Systems Review Of Systems: See Below Constitutional: Reports: Fever, Malaise HEENT: Reports: Ear Pain (bilateral), Eye Discharge (left), Throat Pain Respiratory: Reports: No Symptoms Cardiovascular: Reports: No Symptoms GI/Abdominal: Reports: No Symptoms : Reports: No Symptoms Musculoskeletal: Reports: No Symptoms Skin: Reports: No Symptoms Neurological: Reports: No Symptoms ED EXAM GENERAL W FULL EYE - Physical Exam Exam: See Below Exam Limited By: No Limitations General Appearance: Alert, Mild Distress Eye Exam: Left Eye: Conjunctival Injection (yellow milky discharge), Bilateral Eye: EOMI Ears: No: Normal TMs (red bilaterally) Nose: Normal Inspection Throat/Mouth: Other (tonsilar hypertrophy, inflamation no exudate) Neck: Full Range of Motion, Lymphadenopathy (L), Lymphadenopathy (R) Respiratory/Chest: No Respiratory Distress, Lungs Clear, Normal Breath Sounds Cardiovascular: Normal Peripheral Pulses, Regular Rate, Rhythm GI/Abdominal: Normal Bowel Sounds Extremities: Normal Inspection, Normal Range of Motion Neurological: Alert, Oriented, Normal Cognition Psychiatric: Normal Affect, Normal Mood Skin Exam: Warm, Dry, Intact, Normal Color Course - Vital Signs Last Recorded V/S: Last Vital Signs Temp 101.6 F H 12/06/17 00:10 Pulse 97 12/06/17 00:10 Resp BP 123/68 12/06/17 00:10 Pulse Ox 96 12/06/17 00:10 - Orders/Labs/Meds Meds: Medications Discontinued Medications Generic Name Dose Route Start Last Admin Trade Name Christoq PRN Reason Stop Dose Admin Ceftriaxone Sodium 1 gm/ 0 gm 12/05/17 23:31 12/05/17 23:52 Lidocaine HCl 2.1 ml IM 12/05/17 23:32 1 inj ONETIME ONE Administration Departure - Departure Time of Disposition: 23:49 Disposition: Home, Self-Care 01 Condition: Good Clinical Impression: Strep sore throat Conjunctivitis Qualifiers: Conjunctivitis type: acute Acute conjunctivitis type: unspecified Laterality: left Qualified Code(s): H10.32 - Unspecified acute conjunctivitis, left eye Otitis Qualifiers: Laterality: bilateral Qualified Code(s): H66.93 - Otitis media, unspecified, bilateral - Discharge Information Instructions: Bacterial Conjunctivitis, [id number] Forms: ED Department Discharge Additional Instructions: Stop polymyxin eye drop gentamycin ey drops 2 to left eye 4 times daily for 5 days continue amoxicillin increase fluid intake salt water gargles alternate tylenol and ibuprofen for fever/discomfort wash away eye matter frequently with soft cloth from inner to outer follow up Saturday if not improving
[2017-12-06 00:18] VITALS: BP 123/68
== END 2017-12-06 00:14 | disposition home or self-care (01) ==
LOC: DL.ED 23:03
DX: J02.0 Streptococcal pharyngitis (principal); H10.32 Unspecified acute conjunctivitis, left eye; H66.93 Otitis media, unspecified, bilateral; F17.210 Nicotine dependence, cigarettes, uncomplicated
CPT/HCPCS: 96372; 99282; J0696

== ENCOUNTER 2019-10-13 09:50 | Emergency (ER) | payer MEDICAID ==
[2019-10-13 10:39] VITALS: BP 162/99; PULSE 83
--- NOTE | 2019-10-13 10:47 | EDM.PDOC ---
"ED HPI GENERAL MEDICAL PROBLEM - General Chief Complaint: Eye Problems Stated Complaint: PAIN IN LEFT SIDE OF FACE Time Seen by Provider: 10/13/19 10:43 Source of Information: Reports: Patient, Old Records, RN, RN Notes Reviewed History Limitations: Reports: No Limitations - History of Present Illness INITIAL COMMENTS - FREE TEXT/NARRATIVE: Pt presents to ER from home by POV with c/o left eye and face infection. Pt states that two days ago he had a stye to his left lower eye lid that popped and drained yesterday on it's own. Today he has noticed swelling and drainage, unsure of color, and the left side of his face is swollen down to the left ear/ jaw area. Denies change in vision. Vision acuity 20/30 bilaterally. He does not wear glasses. Has been hot packing area at home. Onset: Gradual Onset Date: 10/11/19 Duration: Constant, Getting Worse Location: Reports: Face (Left eye/Left face) Quality: Reports: Ache Severity: Moderate Improves with: Reports: None Worsens with: Reports: None Associated Symptoms: Reports: No Other Symptoms - Related Data Allergies Allergy/AdvReac Type Severity Reaction Status Date / Time No Known Allergies Allergy Verified 10/13/19 10:29 Home Meds: Home Meds . [No Known Home Meds] 12/16/14 [History] Past Medical History - Past Health History Medical/Surgical History: Denies Medical/Surgical History Musculoskeletal History: Reports: Other (See Below) Other Musculoskeletal History: Fx. arm x2 Endocrine/Metabolic History: Reports: Obesity/BMI 30+ - Infectious Disease History Infectious Disease History: Reports: Chicken Pox Social & Family History - Family History Family Medical History: Noncontributory - Tobacco Use Smoking Status *Q: Current Every Day Smoker Years of Tobacco use: 18 Packs/Tins Daily: 0.5 - Caffeine Use Caffeine Use: Reports: Soda - Sexual History Sexual History: Reports: Sexually Active - Living Situation & Occupation Living situation: Reports: with Significant Other Occupation: Employed ED ROS GENERAL - Review of Systems Review Of Systems: Comprehensive ROS is negative, except as noted in HPI. ED EXAM GENERAL W FULL EYE - Physical Exam Exam: See Below Exam Limited By: No Limitations General Appearance: Alert, No Apparent Distress, Obese Eye Exam: Right Eye: Normal Inspection, Left Eye: Conjunctival Injection (With purulent drainage.), Periorbital Changes (Left conjunctival, periorbital swelling, erythema, and tenderness.), Bilateral Eye: EOMI, PERRL Visual Acuity (R) 20/: 30 Visual Acuity (L) 20/: 30 With Correction: No Eyelids: Right: Normal Appearance, Left: Edema, Erythema Conjunctiva & Sclera: Right: Normal Appearance, Left: Conjunctival Edema, Discharge, Injected Cornea Exam: Bilateral: Normal Appearance Extraocular Movements: Bilateral: Intact Pupils: Normal Accommodation Pupillary Size: Bilateral: 3 mm Pupillary Reaction: Bilateral: Brisk Anterior Chamber: Bilateral: Normal Appearance Ears: Normal External Exam, Hearing Grossly Normal, Other (Left pre-auriclular lymphadenopathy) Nose: Normal Inspection, Normal Mucosa, No Blood Throat/Mouth: Normal Inspection, Normal Lips, Normal Voice, No Airway Compromise Head: Atraumatic, Normocephalic Neck: Normal Inspection, Supple, Non-Tender, Full Range of Motion. No: Lymphadenopathy (L), Lymphadenopathy (R) Respiratory/Chest: No Respiratory Distress, Lungs Clear Cardiovascular: Regular Rate, Rhythm Neurological: Alert, Oriented, CN II-XII Intact, Normal Cognition, Normal Gait, No Motor/Sensory Deficits Psychiatric: Normal Affect, Normal Mood Course - Vital Signs Last Recorded V/S: Last Vital Signs Temp 98.9 F 10/13/19 10:29 Pulse 83 10/13/19 10:29 Resp 18 10/13/19 10:29 BP 162/99 H 10/13/19 10:29 Pulse Ox 99 10/13/19 10:29 - Orders/Labs/Meds Orders: Active Orders 24 hr Category Date Time Status Peripheral IV Care [RC] . DIRECTED Care 10/13/19 10:52 Active Max Facial Sinus w Cont [CT] Stat Exams 10/13/19 10:59 Taken CULTURE EYE [RM] Stat Lab 10/13/19 11:39 Received Sodium Chloride 0.9% [Saline Flush] Med 10/13/19 10:51 Active 10 ml FLUSH ASDIRECTED PRN Vancomycin 2 gm Med 10/13/19 10:53 Active Sodium Chloride 0.9% [Normal Saline] 500 ml IV ONETIME Peripheral IV Insertion Adult [OM.PC] Stat Oth 10/13/19 10:51 Ordered Medication Orders Vancomycin HCl 2 gm/ Sodium (Chloride) 500 mls @ 250 mls/hr IV ONETIME ONE Stop: 10/13/19 12:52 Last Admin: 10/13/19 11:35 Dose: 250 mls/hr Sodium Chloride (Saline Flush) 10 ml FLUSH ASDIRECTED PRN PRN Reason: Keep Vein Open Last Admin: 10/13/19 11:00 Dose: 10 ml Labs: Laboratory Tests 10/13/19 10/13/19 10/13/19 Range/Units 10:56 10:56 10:56 WBC 9.0 (5.0-10.0) 10^3/uL RBC 5.08 (4.6-6.2) 10^6/uL Hgb 16.4 (14.0-18.0) g/dL Hct 47.0 (40.0-54.0) % MCV 92.5 (80-100) fL MCH 32.3 (27.0-34.0) pg MCHC 34.9 (33.0-35.0) g/dL Plt Count 252 (150-450) 10^3/uL Neut % (Auto) 59.7 (42.2-75.2) % Lymph % (Auto) 31.2 (20.5-50.1) % [place] % (Auto) 7.7 (2-8) % Eos % (Auto) 1.2 (1.0-3.0) % Baso % (Auto) 0.2 (0.0-1.0) % Add Manual Diff Yes Neutrophils % (Manual) 66 (42-75) % Band Neutrophils % 1 % Lymphocytes % (Manual) 27 (20-50) % Monocytes % (Manual) 4 (2-8) % Eosinophils % (Manual) 2 (1-3) % Sodium 139 (136-145) mmol/L Potassium 4.0 (3.5-5.1) mmol/L Chloride 101 (101-111) mmol/L Carbon Dioxide 29 (21-32) mmol/L Anion Gap 13.0 (7-13) mEq/L BUN 13 (7-18) mg/dL Creatinine 1.07 (0.70-1.30) mg/dL Est Cr Clr Drug Dosing 110.97 mL/min Estimated GFR (MDRD) > 60 Glucose 90 (74-99) mg/dL Calcium 8.0 L (8.5-10.1) mg/dL C-Reactive Protein 0.5 (0.0-0.9) mg/dL Left eye culture: pending Meds: Medications Generic Name Dose Route Start Last Admin Trade Name Freq PRN Reason Stop Dose Admin Vancomycin HCl 2 gm/ Sodium 500 mls @ 250 mls/hr 10/13/19 10:53 10/13/19 11: 35 Chloride IV 10/13/19 12:52 250 mls/hr ONETIME ONE Administration Sodium Chloride 10 ml 10/13/19 10:51 10/13/19 11:00 Saline Flush FLUSH 10 ml ASDIRECTED PRN Administration Keep Vein Open Discontinued Medications Generic Name Dose Route Start Last Admin Trade Name Freq PRN Reason Stop Dose Admin Diphenhydramine HCl 25 mg 10/13/19 10:54 10/13/19 11:31 Benadryl IVPUSH 10/13/19 10:55 25 mg ONETIME ONE Administration Gentamicin Sulfate 1 ml 10/13/19 10:53 10/13/19 11:35 Garamycin 0.3% Ophth Soln EYELF 10/13/19 10:54 1 ml ONETIME ONE Administration Iopamidol 100 ml 10/13/19 10:59 10/13/19 11:18 Isovue-300 (61%) IVPUSH 10/13/19 11:00 100 ml ONETIME ONE Administration - Radiology Interpretation Free Text/Narrative:: [facility] Final Radiology Report Call: [phone] assistance Online chat: [email or web address] Name: LUCIANA REYNA Age: 34Years M Date: 10/13/2019 SSN: -- : [id number] Study: CT MAXILLOFACIAL/SINUSES W Requesting Physician: [facility]CO SAM Images: 255 Addl Studies: Provided Clinical History: Contrast: With Contrast Medium: Isovue 300 Contrast Amount: 100 mL Contrast Method: LAC Page 1 of 2 PROCEDURE INFORMATION: Exam: CT Maxillofacial With Contrast Exam date and time: 10/13/2019 11:10 AM Age: 34 years old Clinical indication: Other: Left periorbital swelling, cellulitis purulent TECHNIQUE: Imaging protocol: Computed tomography images of the face with intravenous contrast. Radiation optimization: All CT scans at this facility use at least one of these dose optimization techniques: automated exposure control; mA and/or kV adjustment per patient size (includes targeted exams where dose is matched to clinical indication); or iterative reconstruction. Contrast material: ISOVUE 300; Contrast volume: 100 ml; Contrast route: LAC; COMPARISON: No relevant prior studies available. FINDINGS: Orbits: No intraorbital emphysema, inflammation, or fluid collection. The globes are normal. Mastoid air cells: The mastoid air cells are aerated. Sinuses: There is multifocal mild mucoperiosteal thickening. No fluid in the paranasal sinuses. Bones/joints: No acute fracture is felt to be present, but the patient may have had a prior left nasal bone fracture. Lymph nodes: There are enlarged left cervical and intraparotid lymph nodes, likely reactive in nature. Soft tissues: There is left preseptal periorbital superficial soft tissue swelling, extending inferiorly anterior to the left zygoma and overlying the left masseter muscle, compatible with the history of cellulitis. IMPRESSION: Superficial soft tissue swelling compatible with cellulitis. Reactive lymphadenopathy. JADEIsaacLUCIANA | Final Radiology Report CONFIDENTIALITY STATEMENT This report is intended only for use by the referring physician, and only in accordance with law. If you received this in error, call [phone]. Page 2 of 2 Thank you for allowing us to participate in the care of your patient. Dictated and Authenticated by: Dilan Morgan MD 10/13/2019 11:47 AM Central Time ([place] & [place]) Departure - Departure Time of Disposition: 13:00 Disposition: Home, Self-Care 01 Condition: Good Clinical Impression: Preseptal cellulitis of left eye - Discharge Information *PRESCRIPTION DRUG MONITORING PROGRAM REVIEWED*: Not Applicable *COPY OF PRESCRIPTION DRUG MONITORING REPORT IN PATIENT LEE: Not Applicable Instructions: Preseptal Cellulitis, Adult Forms: ED Department Discharge Additional Instructions: Rx: Cipro 500mg Rx: Clindamycin 300mg Gentamicin Ophthalmic Solution 0.3% One drop into left eye four times a day for five days. Follow up in clinic in 2 to 3 days for recheck. Sepsis Event Note - Evaluation Sepsis Screening Result: No Definite Risk - Focused Exam Vital Signs: Vital Signs Temp Pulse Resp BP Pulse Ox 10/13/19 10:29 98.9 F 83 18 162/99 H 99 Date Exam was Performed: 10/13/19 Time Exam was Performed: 11:58 - My Orders Last 24 Hours: My Active Orders 10/13/19 10:51 Sodium Chloride 0.9% [Saline Flush] 10 ml FLUSH ASDIRECTED PRN Peripheral IV Insertion Adult [OM.PC] Stat 10/13/19 10:52 Peripheral IV Care [RC] . DIRECTED 10/13/19 10:53 Vancomycin 2 gm Sodium Chloride 0.9% [Normal Saline] 500 ml IV ONETIME 10/13/19 10:59 Max Facial Sinus w Cont [CT] Stat 10/13/19 11:39 CULTURE EYE [RM] Stat - Assessment/Plan Last 24 Hours: My Active Orders 10/13/19 10:51 Sodium Chloride 0.9% [Saline Flush] 10 ml FLUSH ASDIRECTED PRN Peripheral IV Insertion Adult [OM.PC] Stat 10/13/19 10:52 Peripheral IV Care [RC] . DIRECTED 10/13/19 10:53 Vancomycin 2 gm Sodium Chloride 0.9% [Normal Saline] 500 ml IV ONETIME 10/13/19 10:59 Max Facial Sinus w Cont [CT] Stat 10/13/19 11:39 CULTURE EYE [RM] Stat"
[2019-10-13] MEDS ORDERED: Sodium Chloride 0.9% 10 ML Syringe FLUSH PRN (10:51)
[2019-10-13] MEDS ORDERED: Gentamicin 0.3% Ophth Soln 5 ML Bottle EYELF ONE (10:53)
[2019-10-13] MEDS ORDERED: Vancomycin 2 GM in Sodium Chloride 0.9% 500 ML IV ONE (10:53)
[2019-10-13] MEDS ORDERED: diphenhydrAMINE 50 MG/ML SDV IVPUSH ONE (10:54)
[2019-10-13] MEDS ORDERED: Iopamidol 612 MG/ML 100 ML Bottle IVPUSH ONE (10:59)
[2019-10-13 11:31] LABS: CHLORIDE,CL 101 mmol/L (101-111); SODIUM,NA 139 mmol/L (136-145)
== END 2019-10-13 13:46 | disposition home or self-care (01) ==
LOC: DL.ED 09:50
DX: L03.213 Periorbital cellulitis (principal); E66.9 Obesity, unspecified; F17.210 Nicotine dependence, cigarettes, uncomplicated
CPT/HCPCS: 36415; 70487; 80048; 85025; 86140; 87070; 96365; 96366; 96375; 99284; A9270; J1200; J3370; J7040; Q9967

== ENCOUNTER 2019-12-05 15:10 | Emergency (ER) | payer MEDICAID ==
[2019-12-05] MEDS ORDERED: Promethazine 25 MG Tab PO ONE (15:11)
[2019-12-05 15:18] VITALS: BP 144/98; PULSE 88
[2019-12-05] MEDS ORDERED: Ondansetron 4 MG/2 ML SDV IV ONE (15:31)
[2019-12-05] MEDS ORDERED: Sodium Chloride 0.9% 1,000 ML IV ONE (15:31)
[2019-12-05] MEDS ORDERED: HYDROmorphone 1 MG/ML Syringe IVPUSH ONE (15:32)
[2019-12-05] MEDS ORDERED: Pantoprazole 40 MG Vial IVPUSH ONE (15:32)
[2019-12-05] MEDS ORDERED: Sodium Chloride 0.9% 10 ML Syringe FLUSH PRN (15:32)
[2019-12-05 16:14] LABS: ANION GAP 14.3 mEq/L (7-13); CHLORIDE,CL 99 mmol/L (98-107); SODIUM,NA 137 mmol/L (136-145)
[2019-12-05] MEDS ORDERED: Promethazine 25 MG Tab ONE (17:22)
--- NOTE | 2019-12-05 17:22 | EDM.PDOC ---
Scribed by Anusha Nicholson 12/05/19 1534 for Alexis Caruso MD ED HPI GENERAL MEDICAL PROBLEM - General Chief Complaint: Abdominal Pain Stated Complaint: LEFT SIDE, THROWING UP BLACK,LIQUID,YELLOW Time Seen by Provider: 12/05/19 15:18 Source of Information: Reports: Patient, RN, RN Notes Reviewed History Limitations: Reports: No Limitations - History of Present Illness INITIAL COMMENTS - FREE TEXT/NARRATIVE: Patient arrives to ED by POV stating he has abdominal pain at the epigastric and left side of abdomen that started at 1100HRS today. He has had emesis x5 that was dark and yellow liquid. He denies fever, chills, radiating pain, constipation, or urinary symptoms. He admits to mild diarrhea today. Denies black, bloody, or tarry stools. Pt states he has been drinking alcohol pretty heavily about every other week, and feels that he needs to quit. Onset: Today, Gradual Duration: Constant Location: Reports: Abdomen Quality: Reports: Ache Severity: Moderate Improves with: Reports: None Worsens with: Reports: Eating Associated Symptoms: Reports: No Other Symptoms Left Abdomen Pain Score (Numeric/FACES): 7 - Related Data Allergies Allergy/AdvReac Type Severity Reaction Status Date / Time No Known Allergies Allergy Verified 12/05/19 15:18 Home Meds: Home Meds . [No Known Home Meds] 12/16/14 [History] Past Medical History - Past Health History Medical/Surgical History: Denies Medical/Surgical History Gastrointestinal History: Reports: Gastritis, GERD, GI Bleed Musculoskeletal History: Reports: Other (See Below) Other Musculoskeletal History: Fx. arm x2 Endocrine/Metabolic History: Reports: Obesity/BMI 30+ - Infectious Disease History Infectious Disease History: Reports: Chicken Pox Social & Family History - Family History Family Medical History: Noncontributory - Caffeine Use Caffeine Use: Reports: Soda - Alcohol Use Alcohol Use History: Yes Alcohol Use Frequency: Binges - Sexual History Sexual History: Reports: Sexually Active - Living Situation & Occupation Living situation: Reports: with Significant Other Occupation: Employed ED ROS GENERAL - Review of Systems Review Of Systems: Comprehensive ROS is negative, except as noted in HPI. ED EXAM, GI/ABD - Physical Exam Exam: See Below Exam Limited By: No Limitations General Appearance: Alert, No Apparent Distress, Obese Eyes: Bilateral: Normal Appearance (No scleral icterus), EOMI Nose: Normal Inspection, Normal Mucosa, No Blood Throat/Mouth: Normal Inspection, Normal Lips, Normal Teeth, Normal Gums, Normal Oropharynx, Normal Voice, No Airway Compromise Head: Atraumatic, Normocephalic Neck: Normal Inspection, Non-Tender, Full Range of Motion Respiratory/Chest: No Respiratory Distress, Lungs Clear, Normal Breath Sounds, No Accessory Muscle Use, Chest Non-Tender Cardiovascular: Normal Peripheral Pulses, Regular Rate, Rhythm, No Edema, No Gallop, No JVD, No Murmur, No Rub GI/Abdominal Exam: Normal Bowel Sounds, Soft, No Distention, No Abnormal Bruit, No Mass, Pelvis Stable, Tender (epigastric, LUQ, LLQ) (Male) Exam: Deferred Rectal (Males) Exam: Deferred Back Exam: Normal Inspection, Full Range of Motion. No: CVA Tenderness (L), CVA Tenderness (R), Vertebral Tenderness Extremities: Normal Inspection Neurological: Alert, Oriented, CN II-XII Intact, Normal Cognition, Normal Gait, No Motor/Sensory Deficits Psychiatric: Normal Affect, Normal Mood Skin Exam: Warm, Dry, Intact, Normal Color, No Rash. No: Jaundice, Petechiae Course - Vital Signs Last Recorded V/S: Last Vital Signs Temp 97.5 F 12/05/19 15:14 Pulse 88 12/05/19 15:14 Resp 18 12/05/19 15:14 BP 144/98 H 12/05/19 15:14 Pulse Ox 98 12/05/19 15:14 - Orders/Labs/Meds Orders: Active Orders 24 hr Category Date Time Status Peripheral IV Care [RC] . DIRECTED Care 12/05/19 15:32 Active Sodium Chloride 0.9% [Saline Flush] Med 12/05/19 15:32 Active 10 ml FLUSH ASDIRECTED PRN Peripheral IV Insertion Adult [OM.PC] Stat Oth 12/05/19 15:30 Ordered Medication Orders Sodium Chloride (Saline Flush) 10 ml FLUSH ASDIRECTED PRN PRN Reason: Keep Vein Open Last Admin: 12/05/19 16:06 Dose: 10 ml Labs: Laboratory Tests 12/05/19 12/05/19 12/05/19 Range/Units 15:45 15:45 16:59 WBC 7.7 (5.0-10.0) 10^3/uL RBC 4.93 (4.6-6.2) 10^6/uL Hgb 16.0 (14.0-18.0) g/dL Hct 46.4 (40.0-54.0) % MCV 94.1 (80-100) fL MCH 32.5 (27.0-34.0) pg MCHC 34.5 (33.0-35.0) g/dL Plt Count 307 (150-450) 10^3/uL Neut % (Auto) 63.3 (42.2-75.2) % Lymph % (Auto) 28.0 (20.5-50.1) % [place] % (Auto) 7.4 (2-8) % Eos % (Auto) 0.9 L (1.0-3.0) % Baso % (Auto) 0.4 (0.0-1.0) % Sodium 137 (136-145) mmol/L Potassium 4.3 (3.5-5.1) mmol/L Chloride 99 (98-107) mmol/L Carbon Dioxide 28 (21-32) mmol/L Anion Gap 14.3 H (7-13) mEq/L BUN 16 (7-18) mg/dL Creatinine 1.28 (0.70-1.30) mg/dL Est Cr Clr Drug Dosing 92.77 mL/min Estimated GFR (MDRD) > 60 BUN/Creatinine Ratio 12.5 (No establ ref range) Glucose 91 (74-99) mg/dL Calcium 8.5 (8.5-10.1) mg/dL Total Bilirubin 0.4 (0.2-1.0) mg/dL AST 27 (15-37) U/L ALT 45 (16-63) U/L Alkaline Phosphatase 103 (46-116) U/L Lactate Dehydrogenase 193 (85-227) U/L Total Protein 8.0 (6.4-8.2) g/dL Albumin 3.9 (3.4-5.0) g/dL Globulin 4.1 Albumin/Globulin Ratio 1.0 Amylase 46 (25-115) U/L Lipase 132 (73-393) U/L Urine Color (YELLOW) Urine Appearance (CLEAR) Urine pH (5.0-9.0) Ur Specific [place] (1.005-1.030) Urine Protein (NEGATIVE) Urine Glucose (UA) (NEGATIVE) Urine Ketones (NEGATIVE) Urine Occult Blood (NEGATIVE) Urine Nitrite (NEGATIVE) Urine Bilirubin (NEGATIVE) Urine Urobilinogen (0.2-1.0) mg/dL Ur Leukocyte Esterase (NEGATIVE) Urine RBC /HPF Urine WBC (0-5/HPF) /HPF Ur Epithelial Cells (NOT SEEN) /HPF Urine Bacteria (0-FEW/HPF) /HPF Urine Opiates Screen Positive H (NEGATIVE) Ur Oxycodone Screen Negative (NEGATIVE) Urine Methadone Screen Negative (NEGATIVE) Ur Barbiturates Screen Negative (NEGATIVE) U Tricyclic Antidepress Negative (NEGATIVE) Ur Phencyclidine Scrn Negative (NEGATIVE) Ur Amphetamine Screen Negative (NEGATIVE) U Methamphetamines Scrn Negative (NEGATIVE) Urine MDMA Screen Negative (NEGATIVE) U Benzodiazepines Scrn Negative (NEGATIVE) Urine Cocaine Screen Negative (NEGATIVE) U Marijuana (THC) Screen Positive H (NEGATIVE) Ethyl Alcohol 3 (0) mg/dL 12/05/19 Range/Units 16:59 WBC (5.0-10.0) 10^3/uL RBC (4.6-6.2) 10^6/uL Hgb (14.0-18.0) g/dL Hct (40.0-54.0) % MCV (80-100) fL MCH (27.0-34.0) pg MCHC (33.0-35.0) g/dL Plt Count (150-450) 10^3/uL Neut % (Auto) (42.2-75.2) % Lymph % (Auto) (20.5-50.1) % [place] % (Auto) (2-8) % Eos % (Auto) (1.0-3.0) % Baso % (Auto) (0.0-1.0) % Sodium (136-145) mmol/L Potassium (3.5-5.1) mmol/L Chloride (98-107) mmol/L Carbon Dioxide (21-32) mmol/L Anion Gap (7-13) mEq/L BUN (7-18) mg/dL Creatinine (0.70-1.30) mg/dL Est Cr Clr Drug Dosing mL/min Estimated GFR (MDRD) BUN/Creatinine Ratio (No establ ref range) Glucose (74-99) mg/dL Calcium (8.5-10.1) mg/dL Total Bilirubin (0.2-1.0) mg/dL AST (15-37) U/L ALT (16-63) U/L Alkaline Phosphatase (46-116) U/L Lactate Dehydrogenase (85-227) U/L Total Protein (6.4-8.2) g/dL Albumin (3.4-5.0) g/dL Globulin Albumin/Globulin Ratio Amylase (25-115) U/L Lipase (73-393) U/L Urine Color Yellow (YELLOW) Urine Appearance Clear (CLEAR) Urine pH 8.0 (5.0-9.0) Ur Specific [place] 1.025 (1.005-1.030) Urine Protein 30 H (NEGATIVE) Urine Glucose (UA) Negative (NEGATIVE) Urine Ketones Negative (NEGATIVE) Urine Occult Blood Negative (NEGATIVE) Urine Nitrite Negative (NEGATIVE) Urine Bilirubin Negative (NEGATIVE) Urine Urobilinogen 0.2 (0.2-1.0) mg/dL Ur Leukocyte Esterase Negative (NEGATIVE) Urine RBC 0-5 /HPF Urine WBC 0-5 (0-5/HPF) /HPF Ur Epithelial Cells Rare (NOT SEEN) /HPF Urine Bacteria Not seen (0-FEW/HPF) /HPF Urine Opiates Screen (NEGATIVE) Ur Oxycodone Screen (NEGATIVE) Urine Methadone Screen (NEGATIVE) Ur Barbiturates Screen (NEGATIVE) U Tricyclic Antidepress (NEGATIVE) Ur Phencyclidine Scrn (NEGATIVE) Ur Amphetamine Screen (NEGATIVE) U Methamphetamines Scrn (NEGATIVE) Urine MDMA Screen (NEGATIVE) U Benzodiazepines Scrn (NEGATIVE) Urine Cocaine Screen (NEGATIVE) U Marijuana (THC) Screen (NEGATIVE) Ethyl Alcohol (0) mg/dL Meds: Medications Generic Name Dose Route Start Last Admin Trade Name Freq PRN Reason Stop Dose Admin Sodium Chloride 10 ml 12/05/19 15:32 12/05/19 16:06 Saline Flush FLUSH 10 ml ASDIRECTED PRN Administration Keep Vein Open Discontinued Medications Generic Name Dose Route Start Last Admin Trade Name Freq PRN Reason Stop Dose Admin Hydromorphone HCl 1 mg 12/05/19 15:32 12/05/19 16:05 Dilaudid IVPUSH 12/05/19 15:33 1 mg ONETIME ONE Administration Sodium Chloride 1,000 mls @ 999 mls/hr 12/05/19 15:31 12/05/19 16:04 Normal Saline IV 12/05/19 16:31 999 mls/hr .BOLUS ONE Administration Ondansetron HCl 4 mg 12/05/19 15:31 12/05/19 16:05 Zofran IV 12/05/19 15:32 4 mg ONETIME ONE Administration Pantoprazole Sodium 40 mg 12/05/19 15:32 12/05/19 16:04 Protonix Iv IVPUSH 12/05/19 15:33 40 mg ONETIME ONE Administration Departure - Departure Time of Disposition: 17:14 Disposition: Home, Self-Care 01 Condition: Good Clinical Impression: Gastritis Qualifiers: Gastritis type: alcoholic Chronicity: acute Gastritis bleeding: without bleeding Qualified Code(s): K29.20 - Alcoholic gastritis without bleeding Vomiting Qualifiers: Vomiting type: unspecified Vomiting Intractability: unspecified Nausea presence : with nausea Qualified Code(s): R11.2 - Nausea with vomiting, unspecified - Discharge Information *PRESCRIPTION DRUG MONITORING PROGRAM REVIEWED*: Not Applicable *COPY OF PRESCRIPTION DRUG MONITORING REPORT IN PATIENT LEE: Not Applicable Instructions: Gastritis, Adult, [id number], Nausea and Vomiting, Adult Forms: ED Department Discharge Additional Instructions: Rx: Promethazine 25mg *Do not drive while under the influence of this medication. Rx: Omeprazole 20mg Abstain from alcohol consumption. Follow up in clinic in the next 5 to 7 days. Sepsis Event Note - Evaluation Sepsis Screening Result: No Definite Risk - Focused Exam Vital Signs: Vital Signs Temp Pulse Resp BP Pulse Ox 12/05/19 15:14 97.5 F 88 18 144/98 H 98 Date Exam was Performed: 12/05/19 Time Exam was Performed: 17:21 - My Orders Last 24 Hours: My Active Orders 12/05/19 15:30 Peripheral IV Insertion Adult [OM.PC] Stat 12/05/19 15:32 Peripheral IV Care [RC] . DIRECTED Sodium Chloride 0.9% [Saline Flush] 10 ml FLUSH ASDIRECTED PRN - Assessment/Plan Last 24 Hours: My Active Orders 12/05/19 15:30 Peripheral IV Insertion Adult [OM.PC] Stat 12/05/19 15:32 Peripheral IV Care [RC] . DIRECTED Sodium Chloride 0.9% [Saline Flush] 10 ml FLUSH ASDIRECTED PRN I have read and agree with the documentation that has been completed regarding this visit. By signing this record, I attest that the documentation was completed in my physical presence and is an accurate record of the encounter.
== END 2019-12-05 17:25 | disposition home or self-care (01) ==
LOC: DL.ED 15:10
DX: K29.20 Alcoholic gastritis without bleeding (principal); E66.9 Obesity, unspecified; Z68.41 Body mass index [BMI] 40.0-44.9, adult
CPT/HCPCS: 36415; 80053; 80305-QW; 80307; 81001; 82150; 83615; 83690; 85025; 96361; 96374; 96375; 99284-25; A9270-GY; C9113; J1170; J2405; J7030

== ENCOUNTER 2019-12-10 21:48 | Emergency (ER) | payer MEDICAID ==
[2019-12-10 22:46] VITALS: BP 158/86; PULSE 108
--- NOTE | 2019-12-10 23:29 | EDM.PDOC ---
ED HPI GENERAL MEDICAL PROBLEM - General Chief Complaint: Gastrointestinal Problem Stated Complaint: pain in side/nauseous/hard time breathing Time Seen by Provider: 12/10/19 23:15 Source of Information: Reports: Patient History Limitations: Reports: No Limitations - History of Present Illness INITIAL COMMENTS - FREE TEXT/NARRATIVE: This 34 yo male patient reports to the ED with a 1 1/2 day history of a cough and a 1 week history of upper abdominal pain with nausea and vomiting. The patient reports the medication he was given here did not help. The patient reports he is taking the medication 1 time per day. The patient was advised he was sent home on 2 medications (Omeprazole and Phenergan). Then the patient reports he has been taking both medications. The patient reports he has an ultrasound of his abdomen tomorrow. Duration: Day(s):, Constant, Getting Worse Location: Reports: Chest (1 1/2 days), Abdomen (1 + weeks) Quality: Reports: Other Severity: Moderate Improves with: Reports: None Worsens with: Reports: None Context: Reports: Other Associated Symptoms: Reports: Cough, Nausea/Vomiting Abdomen Pain Score (Numeric/FACES): 7 - Related Data Allergies Allergy/AdvReac Type Severity Reaction Status Date / Time No Known Allergies Allergy Verified 12/10/19 22:46 Home Meds: Home Meds . [No Known Home Meds] 12/16/14 [History] Past Medical History - Past Health History Medical/Surgical History: Denies Medical/Surgical History HEENT History: Reports: None Cardiovascular History: Reports: Hypertension Respiratory History: Reports: None Gastrointestinal History: Reports: Gastritis, GERD, GI Bleed Genitourinary History: Reports: None Musculoskeletal History: Reports: Other (See Below) Other Musculoskeletal History: Fx. arm x2 Neurological History: Reports: None Psychiatric History: Reports: Addiction Endocrine/Metabolic History: Reports: Obesity/BMI 30+ Hematologic History: Reports: None Immunologic History: Reports: None Oncologic (Cancer) History: Reports: None Dermatologic History: Reports: None - Infectious Disease History Infectious Disease History: Reports: Chicken Pox - Past Surgical History Head Surgeries/Procedures: Reports: None Social & Family History - Family History Family Medical History: Noncontributory - Tobacco Use Smoking Status *Q: Current Every Day Smoker Years of Tobacco use: 17 Packs/Tins Daily: 1 - Caffeine Use Caffeine Use: Reports: Coffee, Energy Drinks, Soda, Tea - Alcohol Use Date of Last Drink: 12/03/19 - Recreational Drug Use Recreational Drug Use: Yes Drug Use in Last 12 Months: No Recreational Drug Type: Reports: Marijuana/Hashish - Sexual History Sexual History: Reports: Sexually Active - Living Situation & Occupation Living situation: Reports: with Significant Other Occupation: Employed ED ROS GENERAL - Review of Systems Review Of Systems: Comprehensive ROS is negative, except as noted in HPI. ED EXAM, GENERAL - Physical Exam Exam: See Below Exam Limited By: No Limitations General Appearance: Alert, WD/WN, Mild Distress, Obese Eye Exam: Bilateral Eye: EOMI, Normal Inspection, PERRL Ears: Normal External Exam, Normal Canal, Hearing Grossly Normal, Normal TMs Nose: Normal Inspection, Normal Mucosa, No Blood Throat/Mouth: Normal Inspection, Normal Lips, Normal Teeth, Normal Gums, Normal Oropharynx, Normal Voice, No Airway Compromise Head: Atraumatic, Normocephalic Neck: Normal Inspection, Supple, Non-Tender, Full Range of Motion Respiratory/Chest: No Respiratory Distress, Lungs Clear, Normal Breath Sounds, No Accessory Muscle Use, Chest Non-Tender Cardiovascular: Normal Peripheral Pulses, Regular Rate, Rhythm, No Edema, No Gallop, No JVD, No Murmur, No Rub GI/Abdominal: Normal Bowel Sounds, No Organomegaly, No Distention, No Abnormal Bruit, No Mass, Tender (diffuse upper abdominal tenderness to palpation), Other (obese) (Male) Exam: Deferred Rectal (Males) Exam: Deferred Back Exam: Normal Inspection, Full Range of Motion, NT Extremities: Normal Inspection, Normal Range of Motion, Non-Tender, Normal Capillary Refill, No Pedal Edema Neurological: Alert, Oriented, CN II-XII Intact, Normal Cognition, Normal Gait, Normal Reflexes, No Motor/Sensory Deficits Psychiatric: Normal Affect, Normal Mood Skin Exam: Warm, Dry, Intact, Normal Color, No Rash Lymphatic: No Adenopathy Course - Vital Signs Last Recorded V/S: Last Vital Signs Temp 36.9 C 12/10/19 22:27 Pulse 108 H 12/10/19 22:27 Resp 22 H 12/10/19 22:27 BP 158/86 H 12/10/19 22:27 Pulse Ox 99 12/10/19 22:27 - Orders/Labs/Meds Orders: Active Orders 24 hr Category Date Time Status CULTURE BLOOD [BC] Stat Lab 12/10/19 23:05 Received Metoclopramide [Reglan] Med 12/10/19 23:43 Once 10 mg IVPUSH ONETIME ONE Labs: Laboratory Tests 12/10/19 12/10/19 12/10/19 Range/Units 23:05 23:05 23:05 WBC 11.1 H (5.0-10.0) 10^3/uL RBC 4.55 L (4.6-6.2) 10^6/uL Hgb 14.9 (14.0-18.0) g/dL Hct 43.2 (40.0-54.0) % MCV 94.9 (80-100) fL MCH 32.7 (27.0-34.0) pg MCHC 34.5 (33.0-35.0) g/dL Plt Count 255 (150-450) 10^3/uL Neut % (Auto) 65.4 (42.2-75.2) % Lymph % (Auto) 19.5 L (20.5-50.1) % [place] % (Auto) 12.9 H (2-8) % Eos % (Auto) 1.9 (1.0-3.0) % Baso % (Auto) 0.3 (0.0-1.0) % Sodium 135 L (136-145) mmol/L Potassium 4.0 (3.5-5.1) mmol/L Chloride 100 (98-107) mmol/L Carbon Dioxide 29 (21-32) mmol/L Anion Gap 10.0 (7-13) mEq/L BUN 14 (7-18) mg/dL Creatinine 1.28 (0.70-1.30) mg/dL Est Cr Clr Drug Dosing 92.77 mL/min Estimated GFR (MDRD) > 60 BUN/Creatinine Ratio 10.9 (No establ ref range) Glucose 107 H (74-99) mg/dL Lactic Acid 0.8 (0.4-2.0) mmol/L Calcium 8.5 (8.5-10.1) mg/dL Total Bilirubin 0.6 (0.2-1.0) mg/dL AST 38 H (15-37) U/L ALT 57 (16-63) U/L Alkaline Phosphatase 98 (46-116) U/L Total Protein 7.7 (6.4-8.2) g/dL Albumin 3.6 (3.4-5.0) g/dL Globulin 4.1 Albumin/Globulin Ratio 0.9 Amylase 40 (25-115) U/L Lipase 150 (73-393) U/L Urine Color (YELLOW) Urine Appearance (CLEAR) Urine pH (5.0-9.0) Ur Specific [place] (1.005-1.030) Urine Protein (NEGATIVE) Urine Glucose (UA) (NEGATIVE) Urine Ketones (NEGATIVE) Urine Occult Blood (NEGATIVE) Urine Nitrite (NEGATIVE) Urine Bilirubin (NEGATIVE) Urine Urobilinogen (0.2-1.0) mg/dL Ur Leukocyte Esterase (NEGATIVE) Urine RBC /HPF Urine WBC (0-5/HPF) /HPF Ur Epithelial Cells (NOT SEEN) /HPF Amorphous Sediment (NOT SEEN) /HPF Urine Bacteria (0-FEW/HPF) /HPF Urine Mucus (NOT SEEN) /LPF Urine Opiates Screen (NEGATIVE) Ur Oxycodone Screen (NEGATIVE) Urine Methadone Screen (NEGATIVE) Ur Barbiturates Screen (NEGATIVE) U Tricyclic Antidepress (NEGATIVE) Ur Phencyclidine Scrn (NEGATIVE) Ur Amphetamine Screen (NEGATIVE) U Methamphetamines Scrn (NEGATIVE) Urine MDMA Screen (NEGATIVE) U Benzodiazepines Scrn (NEGATIVE) Urine Cocaine Screen (NEGATIVE) U Marijuana (THC) Screen (NEGATIVE) 12/10/19 12/10/19 Range/Units 23:08 23:08 WBC (5.0-10.0) 10^3/uL RBC (4.6-6.2) 10^6/uL Hgb (14.0-18.0) g/dL Hct (40.0-54.0) % MCV (80-100) fL MCH (27.0-34.0) pg MCHC (33.0-35.0) g/dL Plt Count (150-450) 10^3/uL Neut % (Auto) (42.2-75.2) % Lymph % (Auto) (20.5-50.1) % [place] % (Auto) (2-8) % Eos % (Auto) (1.0-3.0) % Baso % (Auto) (0.0-1.0) % Sodium (136-145) mmol/L Potassium (3.5-5.1) mmol/L Chloride (98-107) mmol/L Carbon Dioxide (21-32) mmol/L Anion Gap (7-13) mEq/L BUN (7-18) mg/dL Creatinine (0.70-1.30) mg/dL Est Cr Clr Drug Dosing mL/min Estimated GFR (MDRD) BUN/Creatinine Ratio (No establ ref range) Glucose (74-99) mg/dL Lactic Acid (0.4-2.0) mmol/L Calcium (8.5-10.1) mg/dL Total Bilirubin (0.2-1.0) mg/dL AST (15-37) U/L ALT (16-63) U/L Alkaline Phosphatase (46-116) U/L Total Protein (6.4-8.2) g/dL Albumin (3.4-5.0) g/dL Globulin Albumin/Globulin Ratio Amylase (25-115) U/L Lipase (73-393) U/L Urine Color Yellow (YELLOW) Urine Appearance Slightly cloudy (CLEAR) Urine pH 6.5 (5.0-9.0) Ur Specific [place] 1.015 (1.005-1.030) Urine Protein Negative (NEGATIVE) Urine Glucose (UA) Negative (NEGATIVE) Urine Ketones Negative (NEGATIVE) Urine Occult Blood Trace-lysed H (NEGATIVE) Urine Nitrite Negative (NEGATIVE) Urine Bilirubin Negative (NEGATIVE) Urine Urobilinogen 0.2 (0.2-1.0) mg/dL Ur Leukocyte Esterase Negative (NEGATIVE) Urine RBC 0-5 /HPF Urine WBC 0-5 (0-5/HPF) /HPF Ur Epithelial Cells Not seen (NOT SEEN) /HPF Amorphous Sediment Rare (NOT SEEN) /HPF Urine Bacteria Not seen (0-FEW/HPF) /HPF Urine Mucus Rare (NOT SEEN) /LPF Urine Opiates Screen Negative (NEGATIVE) Ur Oxycodone Screen Negative (NEGATIVE) Urine Methadone Screen Negative (NEGATIVE) Ur Barbiturates Screen Negative (NEGATIVE) U Tricyclic Antidepress Negative (NEGATIVE) Ur Phencyclidine Scrn Negative (NEGATIVE) Ur Amphetamine Screen Negative (NEGATIVE) U Methamphetamines Scrn Negative (NEGATIVE) Urine MDMA Screen Negative (NEGATIVE) U Benzodiazepines Scrn Negative (NEGATIVE) Urine Cocaine Screen Negative (NEGATIVE) U Marijuana (THC) Screen Positive H (NEGATIVE) Departure - Departure Time of Disposition: 23:43 Disposition: Home, Self-Care 01 Condition: Fair Clinical Impression: Gastritis Qualifiers: Gastritis type: alcoholic Chronicity: acute Gastritis bleeding: without bleeding Qualified Code(s): K29.20 - Alcoholic gastritis without bleeding URI (upper respiratory infection) Qualifiers: URI type: unspecified URI Qualified Code(s): J06.9 - Acute upper respiratory infection, unspecified - Discharge Information *PRESCRIPTION DRUG MONITORING PROGRAM REVIEWED*: Not Applicable *COPY OF PRESCRIPTION DRUG MONITORING REPORT IN PATIENT LEE: Not Applicable Instructions: Gastritis, Adult, [id number], Upper Respiratory Infection, Adult, [id number] Forms: ED Department Discharge Care Plan Goals: The patient was advised of the examination, lab and x-ray results during the visit. The patient was given an IV dose of Reglan (10 mg) while in the ED. The patient was encouraged to take his medications as previously prescribed. The patient should get the ultrasound as ordered for tomorrow. If the patient has any additional symptoms or concerns, the patient should visit his primary care facility or return to the emergency department. Sepsis Event Note - Evaluation Sepsis Screening Result: No Definite Risk - Focused Exam Vital Signs: Vital Signs Temp Pulse Resp BP Pulse Ox 12/10/19 22:27 36.9 C 108 H 22 H 158/86 H 99 Date Exam was Performed: 12/10/19 Time Exam was Performed: 23:43 - My Orders Last 24 Hours: My Active Orders 12/10/19 23:05 CULTURE BLOOD [BC] Stat 12/10/19 23:43 Metoclopramide [Reglan] 10 mg IVPUSH ONETIME ONE - Assessment/Plan Last 24 Hours: My Active Orders 12/10/19 23:05 CULTURE BLOOD [BC] Stat 12/10/19 23:43 Metoclopramide [Reglan] 10 mg IVPUSH ONETIME ONE
[2019-12-10 23:36] LABS: CHLORIDE,CL 100 mmol/L (98-107); SODIUM,NA 135 mmol/L (136-145)
[2019-12-10] MEDS ORDERED: Metoclopramide 10 MG/2 ML SDV IVPUSH ONE (23:43)
== END 2019-12-11 00:01 | disposition home or self-care (01) ==
LOC: DL.ED 21:48
DX: J06.9 Acute upper respiratory infection, unspecified (principal); K29.20 Alcoholic gastritis without bleeding; I10 Essential (primary) hypertension; E66.9 Obesity, unspecified; Z68.41 Body mass index [BMI] 40.0-44.9, adult; F17.210 Nicotine dependence, cigarettes, uncomplicated
CPT/HCPCS: 36415; 71046; 80053; 80305; 81001; 82150; 83605; 83690; 85025; 87040; 96374; 99284; J2765